=== PATIENT | female | born 1955 | race Caucasian/White ===

== ENCOUNTER 2021-04-26 18:35 | Emergency (ER) | payer MEDICARE, OTHER ==
[~2021-04-26] VITALS: Ht 165.1 cm; Wt 90.3 kg
[~2021-04-26 18:35] MED LIST: ASPI81CH; Amlodipine-Ben1 EAC3 PO; BUTASPCAF PO; CLOP75 PO; ESCITALOPRAM OX10 MG PO; Flomax0.4 MG PO; Glucophage1000 MG PO; KETO10 PO; Lovastatin20 MG PO; METF500 PO; Metformin HCl1000 MG PO; PROP10 PO; Pantoprazole So40 MG PO; Percocet 5-3251 EACH PO; Zofran Odt4 MG SL; Zofran Odt8 MG SL
[2021-04-26] MEDS ORDERED: AMLODIPINE-BEN1 EAC2 (19:30)
[2021-04-26] MEDS ORDERED: JARDIANCE25 MG (19:30)
[2021-04-26] MEDS ORDERED: GLIP2.5ER (19:30)
[2021-04-26 19:53] LABS: BASOPHILS ABSOLUTE AUTO 0.05 K/mm3 (0.00-0.23); BASOPHILS PERCENT AUTO 1 % (0-2); EOSINOPHILS ABSOLUTE AUTO 0.64 K/mm3 (0.00-0.68); EOSINOPHILS PERCENT AUTO 7 % (0-6); Hematocrit 43.2 % (33.0-51.0); Hemoglobin 13.7 g/dL (11.5-16.0); IMMATURE GRAN ABSOLUTE AUTO 0.03 K/mm3 (0.00-0.10); IMMATURE GRAN PERCENT AUTO 0 % (0-1); LYMPHOCYTES ABSOLUTE AUTO 3.58 K/mm3 (0.84-5.20); LYMPHOCYTES PERCENT AUTO 40 % (21-46); MONOCYTES ABSOLUTE AUTO 0.73 K/mm3 (0.16-1.47); MONOCYTES PERCENT AUTO 8 % (4-13); Mean Corpuscular HGB 26.6 pg (26.0-34.0); Mean Corpuscular HGB Conc 31.7 g/dL (31.5-36.5); Mean Corpuscular Volume 84 fL (80-100); Mean Platelet Volume 10.3 fL (9.1-12.4); NEUTROPHILS ABSOLUTE AUTO 3.95 K/mm3 (1.96-9.15); NEUTROPHILS PERCENT AUTO 44 % (41-73); Platelet Count 287 K/mm3 (150-400); RDW Coefficient Variation 16.2 % (11.7-14.2); RDW Standard Deviation 49.8 fL (35.1-46.3); Red Blood Cell Count 5.16 M/mm3 (3.80-5.20); White Blood Cell Count 8.98 K/mm3 (4.00-11.30)
[2021-04-26 20:00] LABS: Alanine Aminotransfer (ALT/SGP 60 U/L (12-78); Albumin, Blood 3.6 g/dL (3.4-5.0); Albumin/Globulin Ratio 0.8 (0.8-1.8); Alk Phos 86 U/L (50-136); Anion Gap 8 mmol/L (6-16); Aspartate Aminotrans (AST/SGOT 32 U/L (12-37); Bilirubin, Total 0.2 mg/dL (0.1-1.0); Blood Urea Nitrogen 20 mg/dL (8-24); Bun/Creatinine Ratio 31.8 (12.0-20.0); CO2, Blood 27 mmol/L (21-32); Calcium, Blood 9.4 mg/dL (8.5-10.1); Chloride, Blood 104 mmol/L (98-108); Creatinine, Blood 0.63 mg/dL (0.40-1.00); Globulin, Blood 4.3 g/dL (2.2-4.0); Glomerular Filtration Rate >60 (60-); Glucose, Blood 218 mg/dL (70-99); Potassium, Blood 4.4 mmol/L (3.5-5.5); Sodium, Blood 139 mmol/L (136-145); Total Protein, Blood 7.9 g/dL (6.4-8.2)
== END 2021-04-26 20:31 | disposition home or self-care (01) ==
LOC: ER 18:35
PROVIDERS: Physician Assistant
DX: R79.9 Abnormal finding of blood chemistry, unspecified (principal); I10 Essential (primary) hypertension; E11.9 Type 2 diabetes mellitus without complications; Z87.891 Personal history of nicotine dependence; Z79.84 Long term (current) use of oral hypoglycemic drugs; Z79.899 Other long term (current) drug therapy; Z86.73 Personal history of transient ischemic attack (TIA), and cerebral infarction without residual deficits; Z88.5 Allergy status to narcotic agent
CPT/HCPCS: 36415; 80053; 83735; 84100; 85025; 93005; 93010; 99283-25

== ENCOUNTER 2021-09-07 06:08 | Day surgery (SDC) | payer MEDICARE, OTHER ==
[~2021-09-07] VITALS: Ht 165.1 cm; Wt 88.9 kg
[~2021-09-07 06:08] MED LIST changes: +AMLODIPINE-BEN1 EAC2; +GLIP2.5ER; +JARDIANCE25 MG
--- NOTE | 2021-09-07 08:27 | NUR ---
09/07/21 0827 ALYSIA ANGEL GEL PAD UNDER HEELS.
== END 2021-09-07 10:45 | disposition home or self-care (01) ==
LOC: ORSCSDS 06:08
PROVIDERS: Otolaryngology
PROC: 0GTG0ZZ Resection of Left Thyroid Gland Lobe, Open Approach (ICD-10-PCS; principal; 2021-09-07 07:30)
DX: E04.2 Nontoxic multinodular goiter (principal); I10 Essential (primary) hypertension; E11.9 Type 2 diabetes mellitus without complications; Z86.73 Personal history of transient ischemic attack (TIA), and cerebral infarction without residual deficits; E78.00 Pure hypercholesterolemia, unspecified; Z79.899 Other long term (current) drug therapy; Z79.84 Long term (current) use of oral hypoglycemic drugs; Z79.02 Long term (current) use of antithrombotics/antiplatelets
CPT/HCPCS: 82947; A9270; J1100; J2250; J2405; J2704; J3010; J7120

== ENCOUNTER → 2023-02-21 | Outpatient (CLI) | payer OTHER ==
[2023-02-21 18:07] LABS: Microalb/Creat Ratio UR, Rand 34.93 mg/g (0.000-30.000); Microalbumin, Random Urine 49.6 mg/L (0.000-20.000)
== END | disposition home or self-care (01) ==
LOC: LAB 12:35 → LAB SHORT 12:35
PROVIDERS: Family Medicine
DX: E11.9 Type 2 diabetes mellitus without complications (principal)
CPT/HCPCS: 82043; 82570

== ENCOUNTER 2024-01-08 16:23 | Emergency (ER) | payer OTHER ==
[~2024-01-08] VITALS: Ht 165.1 cm; Wt 79.4 kg
[2024-01-08 17:06] LABS: BASOPHILS ABSOLUTE AUTO 0.06 K/mm3 (0.00-0.23); BASOPHILS PERCENT AUTO 1 % (0-2); EOSINOPHILS ABSOLUTE AUTO 0.14 K/mm3 (0.00-0.68); EOSINOPHILS PERCENT AUTO 2 % (0-6); Hematocrit 38.4 % (33.0-51.0); Hemoglobin 13.1 g/dL (11.5-16.0); IMMATURE GRAN ABSOLUTE AUTO 0.01 K/mm3 (0.00-0.10); IMMATURE GRAN PERCENT AUTO 0 % (0-1); LYMPHOCYTES ABSOLUTE AUTO 2.97 K/mm3 (0.84-5.20); LYMPHOCYTES PERCENT AUTO 38 % (21-46); MONOCYTES ABSOLUTE AUTO 0.64 K/mm3 (0.16-1.47); MONOCYTES PERCENT AUTO 8 % (4-13); Mean Corpuscular HGB 30.3 pg (26.0-34.0); Mean Corpuscular HGB Conc 34.1 g/dL (31.5-36.5); Mean Corpuscular Volume 89 fL (80-100); Mean Platelet Volume 10.3 fL (9.1-12.4); NEUTROPHILS ABSOLUTE AUTO 4.01 K/mm3 (1.96-9.15); NEUTROPHILS PERCENT AUTO 51 % (41-73); Platelet Count 295 K/mm3 (150-400); RDW Coefficient Variation 13.1 % (11.7-14.2); RDW Standard Deviation 42.8 fL (35.1-46.3); Red Blood Cell Count 4.32 M/mm3 (3.80-5.20); White Blood Cell Count 7.83 K/mm3 (4.00-11.30)
[2024-01-08] MEDS ORDERED: Ketorolac Tromethamine 15mg Vial IV ONE (17:15)
[2024-01-08] MEDS ORDERED: Metoclopramide HCl 5MG / ML 2ML Vial IV ONE (17:15)
[2024-01-08] MEDS ORDERED: DiphenhydrAMINE HCl 50 MG/ML 1ML Vial IV ONE (17:15)
[2024-01-08] MEDS ORDERED: Dexamethasone Sod Phos 10 MG/ML 1ML VIAL IV ONE (17:15)
[2024-01-08 17:33] LABS: Albumin, Blood 3.5 g/dL (3.4-5.0); Albumin/Globulin Ratio 0.9 (0.8-1.8); Bilirubin, Total 0.3 mg/dL (0.1-1.0); Bun/Creatinine Ratio 16.9 (12.0-20.0); Calcium, Blood 9.1 mg/dL (8.5-10.1); Creatinine, Blood 0.83 mg/dL (0.40-1.00); Potassium, Blood 3.7 mmol/L (3.5-5.5); Total Protein, Blood 7.5 g/dL (6.4-8.2)
[2024-01-08 18:07] LABS: Source, Urine Clean Catch
[2024-01-08 18:20] LABS: Appearance, Urine Hazy (Clear); Bilirubin, Urine Neg (Neg); Blood, Urine 5+ (Neg); Color, Urine Yellow (P-Yellow); Glucose Qualitative, Urine Neg (Neg); Ketones, Urine Neg (Neg); Leukocyte Esterase, Urine 1+ (Neg); Nitrite, Urine Neg (Neg); Protein, Urine 2+ (Neg); Urobilinogen, Urine NORM (Normal)
[2024-01-08 18:25] VITALS: BP 165/91
[2024-01-08 18:28] LABS: Bacteria Few /hpf; Squamous Epithelial Cells Few /hpf (Few)
[2024-01-08 18:29] LABS: Red Blood Cells, Urine 25-50 /hpf (0-2)
== END 2024-01-08 18:25 | disposition home or self-care (01) ==
LOC: ER 16:23
PROVIDERS: Emergency Medicine; Physician Assistant
DX: G43.109 Migraine with aura, not intractable, without status migrainosus (principal); I10 Essential (primary) hypertension; E11.9 Type 2 diabetes mellitus without complications; E78.00 Pure hypercholesterolemia, unspecified; E03.9 Hypothyroidism, unspecified; Z86.73 Personal history of transient ischemic attack (TIA), and cerebral infarction without residual deficits; Z87.891 Personal history of nicotine dependence; Z88.5 Allergy status to narcotic agent; Z79.01 Long term (current) use of anticoagulants; Z79.84 Long term (current) use of oral hypoglycemic drugs; Z79.899 Other long term (current) drug therapy
CPT/HCPCS: 70450; 80053; 81001; 82947; 83735; 84484; 85025; 93005; 93010; 96374; 96375; 99285-25; J1100; J1200; J1885; J2765

== ENCOUNTER → 2024-01-14 | Outpatient (CLI) | payer OTHER | LOC: LAB 12:28 → LAB SHORT 12:28 | DX: N39.0 Urinary tract infection, site not specified (principal) | CPT/HCPCS: 87086 ==

== ENCOUNTER → 2024-07-01 | Outpatient (CLI) | payer OTHER ==
[2024-07-01 10:56] LABS: BASOPHILS ABSOLUTE AUTO 0.06 K/mm3 (0.00-0.23); BASOPHILS PERCENT AUTO 1 % (0-2); EOSINOPHILS ABSOLUTE AUTO 0.01 K/mm3 (0.00-0.68); EOSINOPHILS PERCENT AUTO 0 % (0-6); Hematocrit 40.9 % (33.0-51.0); Hemoglobin 13.9 g/dL (11.5-16.0); IMMATURE GRAN ABSOLUTE AUTO 0.06 K/mm3 (0.00-0.10); IMMATURE GRAN PERCENT AUTO 1 % (0-1); LYMPHOCYTES ABSOLUTE AUTO 1.15 K/mm3 (0.84-5.20); LYMPHOCYTES PERCENT AUTO 9 % (21-46); MONOCYTES ABSOLUTE AUTO 0.56 K/mm3 (0.16-1.47); MONOCYTES PERCENT AUTO 4 % (4-13); Mean Corpuscular HGB 29.2 pg (26.0-34.0); Mean Corpuscular Volume 86 fL (80-100); Mean Platelet Volume 10.4 fL (9.1-12.4); NEUTROPHILS ABSOLUTE AUTO 11.04 K/mm3 (1.96-9.15); NEUTROPHILS PERCENT AUTO 86 % (41-73); Platelet Count 290 K/mm3 (150-400); RDW Coefficient Variation 13.2 % (11.7-14.2); RDW Standard Deviation 40.8 fL (35.1-46.3); Red Blood Cell Count 4.76 M/mm3 (3.80-5.20); White Blood Cell Count 12.88 K/mm3 (4.00-11.30)
[2024-07-01 11:16] LABS: Albumin, Blood 3.8 g/dL (3.4-5.0); Albumin/Globulin Ratio 0.9 (0.8-1.8); Bilirubin, Total 0.4 mg/dL (0.1-1.0); Bun/Creatinine Ratio 10.7 (12.0-20.0); Calcium, Blood 9.5 mg/dL (8.5-10.1); Creatinine, Blood 1.31 mg/dL (0.40-1.00); Globulin, Blood 4.4 g/dL (2.2-4.0); Potassium, Blood 4.2 mmol/L (3.5-5.5); Total Protein, Blood 8.2 g/dL (6.4-8.2)
== END | disposition home or self-care (01) ==
LOC: LAB SHORT 10:35 → LAB 10:35
PROVIDERS: Physician Assistant
DX: R31.9 Hematuria, unspecified (principal); R10.9 Unspecified abdominal pain
CPT/HCPCS: 80053; 83690; 85025; 87086

== ENCOUNTER → 2024-07-02 | Outpatient (CLI) | payer OTHER ==
[2024-07-02 09:53] LABS: BASOPHILS ABSOLUTE AUTO 0.07 K/mm3 (0.00-0.23); BASOPHILS PERCENT AUTO 1 % (0-2); EOSINOPHILS ABSOLUTE AUTO 0.11 K/mm3 (0.00-0.68); EOSINOPHILS PERCENT AUTO 1 % (0-6); Hematocrit 41.9 % (33.0-51.0); Hemoglobin 14.2 g/dL (11.5-16.0); IMMATURE GRAN ABSOLUTE AUTO 0.05 K/mm3 (0.00-0.10); IMMATURE GRAN PERCENT AUTO 1 % (0-1); LYMPHOCYTES PERCENT AUTO 17 % (21-46); MONOCYTES ABSOLUTE AUTO 0.81 K/mm3 (0.16-1.47); MONOCYTES PERCENT AUTO 8 % (4-13); Mean Corpuscular HGB 29.7 pg (26.0-34.0); Mean Corpuscular HGB Conc 33.9 g/dL (31.5-36.5); Mean Corpuscular Volume 88 fL (80-100); Mean Platelet Volume 10.3 fL (9.1-12.4); NEUTROPHILS ABSOLUTE AUTO 7.72 K/mm3 (1.96-9.15); NEUTROPHILS PERCENT AUTO 73 % (41-73); Platelet Count 304 K/mm3 (150-400); RDW Coefficient Variation 13.4 % (11.7-14.2); RDW Standard Deviation 42.6 fL (35.1-46.3); Red Blood Cell Count 4.78 M/mm3 (3.80-5.20); White Blood Cell Count 10.56 K/mm3 (4.00-11.30)
[2024-07-02 10:00] LABS: Bun/Creatinine Ratio 11.7 (12.0-20.0); Calcium, Blood 9.5 mg/dL (8.5-10.1); Creatinine, Blood 1.45 mg/dL (0.40-1.00)
== END | disposition home or self-care (01) ==
LOC: LAB 09:49 → LAB SHORT 09:49
PROVIDERS: Physician Assistant
DX: N18.9 Chronic kidney disease, unspecified (principal)
CPT/HCPCS: 80048; 85025

== ENCOUNTER 2024-07-03 18:07 | Emergency (ER) | payer OTHER ==
[~2024-07-03] VITALS: Ht 172.7 cm; Wt 81.7 kg
[~2024-07-03 18:07] MED LIST changes: -AMLODIPINE-BEN1 EAC2; +AMLODIPINE-BEN1 EAC2 PO
== END 2024-07-03 19:29 | disposition left against medical advice (07) ==
LOC: ER 18:07
DX: R20.0 Anesthesia of skin (principal); Z53.21 Procedure and treatment not carried out due to patient leaving prior to being seen by health care provider

== ENCOUNTER 2024-07-10 15:23 | Emergency (ER) | payer OTHER ==
[~2024-07-10] VITALS: Ht 165.1 cm; Wt 79.4 kg
[2024-07-10 17:45] LABS: BASOPHILS ABSOLUTE AUTO 0.06 K/mm3 (0.00-0.23); BASOPHILS PERCENT AUTO 1 % (0-2); EOSINOPHILS ABSOLUTE AUTO 0.31 K/mm3 (0.00-0.68); EOSINOPHILS PERCENT AUTO 3 % (0-6); Hematocrit 41.5 % (33.0-51.0); IMMATURE GRAN PERCENT AUTO 1 % (0-1); LYMPHOCYTES ABSOLUTE AUTO 3.41 K/mm3 (0.84-5.20); LYMPHOCYTES PERCENT AUTO 30 % (21-46); MONOCYTES ABSOLUTE AUTO 0.79 K/mm3 (0.16-1.47); MONOCYTES PERCENT AUTO 7 % (4-13); Mean Corpuscular HGB 29.8 pg (26.0-34.0); Mean Corpuscular HGB Conc 33.7 g/dL (31.5-36.5); Mean Corpuscular Volume 88 fL (80-100); Mean Platelet Volume 10.5 fL (9.1-12.4); NEUTROPHILS ABSOLUTE AUTO 6.85 K/mm3 (1.96-9.15); NEUTROPHILS PERCENT AUTO 59 % (41-73); Platelet Count 385 K/mm3 (150-400); RDW Coefficient Variation 13.1 % (11.7-14.2); RDW Standard Deviation 41.9 fL (35.1-46.3); White Blood Cell Count 11.52 K/mm3 (4.00-11.30)
[2024-07-10 18:11] LABS: Albumin, Blood 3.5 g/dL (3.4-5.0); Albumin/Globulin Ratio 0.8 (0.8-1.8); Bilirubin, Total 0.4 mg/dL (0.1-1.0); Bun/Creatinine Ratio 16.3 (12.0-20.0); Calcium, Blood 10.3 mg/dL (8.5-10.1); Creatinine, Blood 1.53 mg/dL (0.40-1.00); Globulin, Blood 4.3 g/dL (2.2-4.0); Potassium, Blood 3.5 mmol/L (3.5-5.5); Thyroid Stimulating Hormone 1.1 uIU/mL (0.360-4.800); Total Protein, Blood 7.8 g/dL (6.4-8.2)
[2024-07-10] MEDS ORDERED: OZEMPIC1 MG/0.72 SC (18:28)
[2024-07-10] MEDS ORDERED: PANTOPRAZOLE SO2010 PO (18:29)
[2024-07-10] MEDS ORDERED: ESCI10 PO (18:30)
[2024-07-10] MEDS ORDERED: LIPITOR80 MG PO (18:30)
[2024-07-10] MEDS ORDERED: METFORMIN HCL500 M3 PO (18:31)
[2024-07-10 18:39] LABS: Source, Urine Straight Cath
[2024-07-10 18:52] LABS: Appearance, Urine Clear (Clear); Blood, Urine 2+ (Neg); Color, Urine Yellow (P-Yellow); Glucose Qualitative, Urine Neg (Neg); Ketones, Urine Neg (Neg); Leukocyte Esterase, Urine 1+ (Neg); Nitrite, Urine Neg (Neg); Protein, Urine 3+ (Neg); Urobilinogen, Urine 1+ (Normal)
[2024-07-10 19:11] LABS: Bilirubin, Urine 1+ (Neg)
[2024-07-10 19:12] LABS: Bacteria Many /hpf; Squamous Epithelial Cells Few /hpf (Few)
[2024-07-10] MEDS ORDERED: Nitrofurantoin/Nitrofuran Mac 100 MG Cap PO ONE (19:30)
[2024-07-10] MEDS ORDERED: Macrobid 100 M100 MG PO (19:35)
[2024-07-10 19:45] VITALS: BP 134/78
== END 2024-07-10 19:46 | disposition home or self-care (01) ==
LOC: ER 15:23
PROVIDERS: Emergency Medicine
DX: N39.0 Urinary tract infection, site not specified (principal); R41.0 Disorientation, unspecified; E78.00 Pure hypercholesterolemia, unspecified; E11.9 Type 2 diabetes mellitus without complications; E03.9 Hypothyroidism, unspecified; I10 Essential (primary) hypertension; Z87.891 Personal history of nicotine dependence; Z86.73 Personal history of transient ischemic attack (TIA), and cerebral infarction without residual deficits; Z79.02 Long term (current) use of antithrombotics/antiplatelets; Z79.899 Other long term (current) drug therapy; Z88.5 Allergy status to narcotic agent; Z79.84 Long term (current) use of oral hypoglycemic drugs; Z53.21 Procedure and treatment not carried out due to patient leaving prior to being seen by health care provider
CPT/HCPCS: 70450; 80053; 81001; 84443; 85025; 87086; 93005; 93010; 99285-25; A9270; P9612